=== PATIENT | male | born 1970 | race Caucasian/White ===

== ENCOUNTER 2016-07-18 18:46 | Observation (INO) | payer MEDICARE ==
[2016-07-18] MEDS: NALOXONE 0.4 MG/ML 10 ML VIAL IVP STA ×2 (18:55→20:57)
[2016-07-18] MEDS ORDERED: NALOXONE 0.4 MG/ML 1 ML VIAL IV STA ×3 (19:08→20:31)
[2016-07-18] MEDS ORDERED: NALOXONE 0.4 MG/ML 10 ML VIAL IVP STA (21:26)
[2016-07-18 21:34] LABS: Basophils # (A) 0.1 k/uL (0-0.2); Basophils % (A) 1 %; CH 33.1; CHCM 34.2; Eosinophils # (A) 0.2 k/uL (0-0.7); Eosinophils % (A) 2 %; HCT 50.4 % (39.0-53.0); HDW 2.35; HGB 16.6 gm/dL (13.0-17.5); Luc # (Auto) 0.19; Luc % (Auto) 2; Lymphocytes # (A) 1.8 k/uL (1.0-4.8); Lymphocytes % (A) 17 %; MCH 31.9 pg (25.0-35.0); MCHC 32.9 g/dL (31.0-37.0); MCV 97.1 fL (80.0-100.0); Mean Platelet Volume 7.7; Monocytes # (A) 0.5 k/uL (0-1.0); Monocytes % (A) 5 %; Neutrophils # (A) 7.6 k/uL (1.3-7.7); Neutrophils % (A) 73 %; RDW 12.8 % (11.5-15.5); WBC 10.5 k/uL (3.8-10.6); WBC (Perox) 9.89
[2016-07-18 21:37] LABS: Acetaminophen <10.0 ug/mL; Alcohol <10 mg/dL; Salicylate <1.0 mg/dL
--- NOTE | 2016-07-18 23:28 | ED ---
Altered Mental Status HPI - General Chief Complaint: Altered Mental Status Stated Complaint: OVERDOSE Time Seen by Provider: 07/18/16 18:54 Source: patient Mode of arrival: wheelchair Limitations: altered mental status - History of Present Illness Initial Comments: This patient is a 46-year-old man who was reportedly dropped off at the emergency department by a friend who stated that he may have used some heroin. When I performed the history and physical, there is a relation by marriage present who states that the patient does not normally do drugs, however he was at a location where there may have been drugs present and he may have taken some , however this is uncertain. The patient was only answering a few questions, and this only with yes or no. He was denying pains. He denied dyspnea. He also denied using drugs. MD Complaint: altered mental status, decreased responsiveness -: minutes(s) Severity: moderate Consistency of Symptoms: getting worse Context: drug abuse Associated Symptoms: denies other symptoms - Related Data Home Medications Medication Instructions Recorded Confirmed Testosterone Cypionate 200 mg IM Q14D 07/18/16 07/19/16 [Depo-Testosterone] oxyCODONE HCL 30 mg PO QID PRN 07/18/16 07/19/16 Allergies Allergy/AdvReac Type Severity Reaction Status Date / Time No Known Allergies Allergy Verified 07/19/16 08:00 Review of Systems ROS Statement: Those systems with pertinent positive or pertinent negative responses have been documented in the HPI. ROS Other: All systems not noted in ROS Statement are negative. Limitations: ROS unobtainable due to patients medical condition Respiratory: Denies: dyspnea Cardiovascular: Denies: chest pain Gastrointestinal: Denies: abdominal pain Neurological: Denies: headache Past Medical History Past Medical History: No Reported History History of Any Multi-Drug Resistant Organisms: None Reported Additional Past Surgical History / Comment(s): NECK SURGERY Past Psychological History: Unable to Obtain Smoking Status: Current every day smoker Past Alcohol Use History: None Reported Past Drug Use History: Unable to Obtain - Past Family History Father Family Medical History: Myocardial Infarction (MO) Additional Family Medical History / Comment(s): Father of a MO at the age of 46yrs. Mother Family Medical History: Myocardial Infarction ([place]) Additional Family Medical History / Comment(s): Mother of a MO at the age of 68yrs. General Exam General appearance: appears intoxicated Head exam: Present: atraumatic, normocephalic Eye exam: Present: normal appearance, PERRL, nystagmus. Absent: scleral icterus , conjunctival injection ENT exam: Present: mucous membranes dry Neck exam: Present: normal inspection, full ROM Respiratory exam: Present: normal lung sounds bilaterally. Absent: respiratory distress, wheezes, rales, rhonchi, stridor Cardiovascular Exam: Present: regular rate, normal rhythm, normal heart sounds. Absent: systolic murmur, diastolic murmur, rubs, gallop GI/Abdominal exam: Present: soft. Absent: distended, tenderness, guarding, rebound, mass, pulsatile mass Extremities exam: Present: normal inspection, normal capillary refill. Absent: pedal edema, calf tenderness Back exam: Present: normal inspection. Absent: CVA tenderness (R), CVA tenderness (L) Neurological exam: Present: altered, CN II-XII intact, reflexes normal. Absent : motor sensory deficit Skin exam: Present: warm, dry, intact, normal color. Absent: rash Course Vital Signs 07/18/16 07/18/16 07/18/16 18:53 19:22 21:01 Temperature 97.5 F L Pulse Rate 82 81 77 Respiratory 16 22 16 Rate Blood Pressure 115/74 134/72 127/78 O2 Sat by Pulse 93 L 100 99 Oximetry 07/18/16 07/18/16 07/19/16 21:49 22:44 01:06 Temperature Pulse Rate 79 78 77 Respiratory 24 24 24 Rate Blood Pressure 142/79 145/90 133/72 O2 Sat by Pulse 100 93 L 96 Oximetry Medical Decision Making - Medical Decision Making Patient's a 46-year-old man presenting after suspected overdose. His drug screen is positive for opioids and benzodiazepines. Following administration of Narcan the patient is alert but definitely intoxicated and not safe for discharge. We'll admit the patient for further observation and to ensure that he does not require additional dose of Narcan. - Lab Data Result diagrams: 07/19/16 08:25 07/19/16 09:55 Lab Results 07/18/16 07/18/16 07/18/16 Range/Units 18:55 18:55 21:24 WBC 10.5 (3.8-10.6) k/uL RBC 5.20 (4.30-5.90) m/uL Hgb 16.6 (13.0-17.5) gm/dL Hct 50.4 (39.0-53.0) % MCV 97.1 (80.0-100.0) fL MCH 31.9 (25.0-35.0) pg MCHC 32.9 (31.0-37.0) g/dL RDW 12.8 (11.5-15.5) % Plt Count 274 (150-450) k/uL Neutrophils % 73 % Lymphocytes % 17 % Monocytes % 5 % Eosinophils % 2 % Basophils % 1 % Neutrophils # 7.6 (1.3-7.7) k/uL Lymphocytes # 1.8 (1.0-4.8) k/uL Monocytes # 0.5 (0-1.0) k/uL Eosinophils # 0.2 (0-0.7) k/uL Basophils # 0.1 (0-0.2) k/uL Salicylates <1.0 mg/dL Urine Opiates Screen Detected H (NotDetected) Ur Oxycodone Screen Not Detected (NotDetected) Urine Methadone Screen Not Detected (NotDetected) Ur Propoxyphene Screen Not Detected (NotDetected) Acetaminophen <10.0 ug/mL Ur Barbiturates Screen Not Detected (NotDetected) U Tricyclic Antidepress Not Detected (NotDetected) Ur Phencyclidine Scrn Not Detected (NotDetected) Ur Amphetamines Screen Not Detected (NotDetected) U Methamphetamines Scrn Not Detected (NotDetected) U Benzodiazepines Scrn Detected H (NotDetected) Urine Cocaine Screen Not Detected (NotDetected) U Marijuana (THC) Screen Not Detected (NotDetected) Serum Alcohol <10 mg/dL Disposition Clinical Impression: Drug overdose, Altered mental status Disposition: ADMITTED IP TO THIS HOSP Condition: Fair
[2016-07-19] MEDS ORDERED: NALOXONE 0.4 MG/ML 1 ML VIAL IV PRN (00:31)
--- NOTE | 2016-07-19 00:35 | CT ---
EXAM: CT Head Without Intravenous Contrast. CLINICAL HISTORY: Pain, overdose, unable to speak. TECHNIQUE: Axial computed tomography images of the head/brain without intravenous contrast. CTDI is 57.4 mGy and DLP is 1029.9 mGy-cm This CT exam was performed using one or more of the following dose reduction techniques: automated exposure control, adjustment of the mA and/or kV according to patient size, and/or use of iterative reconstruction technique. Coronal and sagittal reformatted images were created and reviewed. COMPARISON: No relevant prior studies available. FINDINGS: Brain: No intracranial hemorrhage or suspicious hypoattenuation to suggest CT evidence of acute cortical/territorial infarction. Small bilateral chronic superior cerebellar lacunar infarcts versus dilated perivascular spaces are noted. No extra-axial fluid collection. Ventricles: Unremarkable. No midline shift or ventriculomegaly. Bones/joints: No depressed calvarial fracture. Soft tissues: Unremarkable. Sinuses: Ethmoid air cell, sphenoid sinus, and maxillary sinus mucosal thickening with small fluid/debris in the sphenoid on the right. Mastoid air cells: Unremarkable as visualized. No mastoid effusion. IMPRESSION: 1. No midline shift, hemorrhage, or CT evidence of acute cortical infarction. If symptoms persist, MRI head could be performed for further evaluation. 2. Dilated perivascular spaces versus small chronic lacunar infarcts in the bilateral superior cerebellar hemispheres. 3. No depressed calvarial fracture. 4. Sinus disease as above.
[2016-07-19] MEDS ORDERED: SODIUM CHLORIDE 0.9% 1,000 ML IV SCH (00:45)
[2016-07-19 08:52] VITALS: BP 127/75; PULSE 87; RESP 16; TEMP 96.9
[2016-07-19 09:36] LABS: Basophils # (A) 0.1 k/uL (0-0.2); Basophils % (A) 0 %; CH 33.2; CHCM 35.4; Eosinophils # (A) 0.1 k/uL (0-0.7); Eosinophils % (A) 1 %; HCT 50.7 % (39.0-53.0); HDW 2.58; HGB 18.3 gm/dL (13.0-17.5); Luc # (Auto) 0.28; Luc % (Auto) 1; Lymphocytes # (A) 1.7 k/uL (1.0-4.8); Lymphocytes % (A) 8 %; MCH 33.9 pg (25.0-35.0); MCV 94.2 fL (80.0-100.0); Mean Platelet Volume 8.8; Monocytes % (A) 4 %; Neutrophils # (A) 19.3 k/uL (1.3-7.7); Neutrophils % (A) 86 %; RBC 5.39 m/uL (4.30-5.90); RDW 12.5 % (11.5-15.5); WBC 22.4 k/uL (3.8-10.6); WBC (Perox) 22.72
[2016-07-19 10:43] LABS: ALT 30 U/L (21-72); AST 25 U/L (17-59); Alkaline Phosphatase 76 U/L (38-126); Anion Gap 9 mmol/L; Blood Urea Nitrogen 13 mg/dL (9-20); Calcium 9.4 mg/dL (8.4-10.2); Carbon Dioxide 24 mmol/L (22-30); Chloride 108 mmol/L (98-107); Glucose 100 mg/dL (74-99); Non-African American GFR(MDRD) >60 (>60 ml/min/1.73 sqM); Potassium 4.5 mmol/L (3.5-5.1); Sodium 141 mmol/L (137-145); Total Protein 7.6 g/dL (6.3-8.2)
[2016-07-19 15:05] LABS: Hemoglobin A1C 5.3 % (4.2-6.1)
--- NOTE | 2016-09-05 11:44 | HP ---
DATE OF ADMISSION: CHIEF COMPLAINT: Altered mental status. HISTORY OF PRESENT ILLNESS: This is a 46-year-old man dropped off by the emergency room by a friend states he took some heroin and had altered mental status. He has trouble with his marriage. Normally does not take drugs, but he took some drugs today. He denies any pain. Dyspnea or history of drugs. He had altered mental status and decreased responsiveness. Home medications include: 1. Testosterone injections. 2. Oxycodone at home also 30 mg q.i.d. ALLERGIES: No known drug allergies. REVIEW OF SYSTEMS: Fourteen-point review of systems negative except for as mentioned in HPI. PAST MEDICAL HISTORY: Negative except for possible neck surgery. Current every day smoker. FAMILY HISTORY: Father with myocardial infarction at age 46. Mother myocardial infarction age 68. PHYSICAL EXAM: He appears intoxicated. HEAD: Normocephalic, atraumatic. No scleral icterus. Pupils equal, round and reactive to light. Dry mucous membranes. Poor skin turgor. Respiratory: No rales, rhonchi or wheezing, decent air flow. HEART: S1, S2. No murmurs, rubs, gallops. GI: Distended, mild tender, guarding. No mass or organomegaly. EXTREMITIES: Poor skin turgor, and normal capillary refill. Back is normal on inspection. No CVA tenderness. NEUROLOGIC: Cranial nerves are intact. Temperature is 97.5, pulse 77 to 82, blood pressure is 115 to 130s over 60s to 70s. O2 93 to 99%. White count 22,000, hemoglobin is 18.3. Drug screen was positive for opioids and benzodiazepines. The patient was given Narcan. He had some improvement in his mental status. He was admitted for alcohol intoxication. He continued to go on alcohol withdrawal protocol. Monitor for Narcan. More confusion, altered mental status overnight.
--- NOTE | 2016-09-06 08:57 | DS ---
DATE OF ADMISSION: 07/19/2016 DATE OF DISCHARGE: 07/19/2016 DISCHARGE DIAGNOSES: 1. Drug overdose. 2. Altered mental status. 3. Alcohol withdrawal. 4. Leukocytosis, unclear etiology. 5. Possible opioid abuse and benzodiazepine abuse. HOSPITAL COURSE OF EVENTS: This is a white male who came into the hospital with alcohol withdrawal and monitoring for possible Narcan for polysubstance abuse and overdose. Patient signed out AGAINST MEDICAL ADVICE and was sent home with no medications as he signed out AGAINST MEDICAL ADVICE. CAT scan was essentially normal.
== END 2016-07-19 12:00 | disposition left against medical advice (07) ==
LOC: EC 18:46 → 6SEL 07-19 00:31
PROVIDERS: ADMIT Family Medicine; ATTEND Family Medicine
DX: T50.901A Poisoning by unspecified drugs, medicaments and biological substances, accidental (unintentional), initial encounter (principal); F17.200 Nicotine dependence, unspecified, uncomplicated; Z82.49 Family history of ischemic heart disease and other diseases of the circulatory system; R41.82 Altered mental status, unspecified
CPT/HCPCS: 99285 ×2; 96374 ×2; 96376 ×2; 36415; 94760; 93005; 80053; 83036; 85025 ×2; 80306; 83520 ×2; 80320; 70450; G0378; J2310